=== PATIENT | male | born 1980 | race Two or more races ===

== ENCOUNTER 2021-06-07 04:16 | Emergency (ER) | payer SELFPAY ==
[~2021-06-07] VITALS: Ht 175.3 cm; Wt 99.8 kg
[2021-06-07 04:31] VITALS: BP 123/74
== END 2021-06-07 04:36 | disposition left against medical advice (07) ==
LOC: ER 04:16
DX: Z53.21 Procedure and treatment not carried out due to patient leaving prior to being seen by health care provider